=== PATIENT | male | born 1955 | race Asian ===

== ENCOUNTER 2023-09-28 05:10 | Observation (INO) | payer BC, SELFPAY ==
[2023-09-28] VITALS (7 sets, daily range): BP systolic 131–174; BP diastolic 63–78; PULSE 55–62; BMI 25.3; BMI 24.9
--- NOTE | 2023-09-28 03:52 | ED.CVA ---
History of Present Illness
General
Chief Complaint: CVA/TIA Symptoms
Source: patient, spouse and family (Daughter)
Exam Limitations: none
Time Seen by Provider: 09/28/23 03:10
Nursing documentation reviewed up to this point in time: agreed with
Onset of Stroke Symptoms
Onset of symptoms known: Yes
Date of onset of symptoms: 09/27/23
Time of onset of symptoms: 22:00
Travel History
Have you had any contact with someone who has COVID-19?: No
Do you have any symptoms of coronavirus? Fever > 100 degrees, chills, cough, shortness of breath, sore throat, loss of taste or smell, muscle aches, or headache?: No
History of Present Illness
History of Present Illness:
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
CVAs on both occasions began with dizziness. In April dizziness was also accompanied with vision difficulty, numbness of his tongue. He was found to have occipital lobe CVA. After CVA in April he was placed on 3-month course of DAPT with
low-dose aspirin and Plavix. Plavix was discontinued in July and then patient suffered another stroke early August, at that time he was on vacation in [place] and hospitalized in [place]. He was found to have cerebellar stroke along the same
distribution as his previous occipital stroke. He was placed back on DAPT for 3 weeks, discontinued 10 days ago and he followed up with his neurologist at [place] yesterday, September 27.
Tonight around 10 PM patient developed somewhat abrupt onset of dizziness causing him to lie down. Dizziness lasted only a few seconds and resolved. No associated vision difficulty nor tongue numbness, no weakness of his extremities. He has had
no return of dizziness but is concerned for recurrent stroke. He denies headache and is currently feeling well.
Past History
Past History
ED Past Medical History: CVA, HTN and Hypercholesterolemia
ED Past Surgical History: None
Social History
Tobacco: Non-smoker
Alcohol: None
Personal:
Living: with family
Employment: Retired
Family History
Family History: Other (Noncontributory)
Phy Exam
Physical Exam
Physical Exam:
GENERAL: Alert , in no apparent distress. 68-year-old gentleman appears his stated age, bright and alert, pleasant, appears in no acute distress. is accompanying.
EYE: pupils equal and reactive. anicteric
NECK: Supple, nontender, no meningismus, no significant adenopathy.
ENT: posterior pharynx is clear, oral mucosa is moist. No rhinorrhea.
CARDIAC: Regular rate and rhythm. no murmur.
LUNGS: Clear breath sounds bilaterally, no acute respiratory distress, no wheezes/rales/rhonchi
ABDOMEN: Soft, nondistended, without focal tenderness, normoactive BS.
NEUROLOGICAL: Alert and oriented x3, cranial nerves II through XII grossly intact. No focal neuro deficits. Gait is lloyd and steady.
SKIN: Warm and dry, normal color, skin intact. No rash.
MUSCULOSKELETAL: No C/C/E. peripheral pulses are full and equal b/l. No palpable tenderness.
PSYCH: Normal and appropriate interaction.
Scores
NIH Stroke Score
Level of Consciousness: 0 - Alert
LOC Questions: 0-Answers both correctly
LOC Commands: 0-Performs both correctly
Best Horizontal Gaze: 0-Normal
Visual Giordano: 0=Normal, no visual loss
Facial Palsy: 0=Normal, symmetrical
Motor - Right Arm: 0=No drift 10 seconds
Motor - Left Arm: 0=No drift 10 seconds
Motor - Right Le-No drift 5 seconds
Motor - Left Le-No drift 5 seconds
Limb Ataxia: 0-Absent
Sensation: 0-Normal
Best Language: 0-No aphasia
Dysarthria: 0-Normal
Extinction and Inattention: 0-No abnormality
Total Score:: 0
Course
Orders/Labs/Results
Orders:
Orders
09/28/23 01:[address] [CT Head W/o Iv Contrast] Urgent
Comment:
Reason For Exam: DIZZY/TIA
09/28/23 03:49
Basic Metabolic Panel Urgent
Complete Blood Count/With Diff Urgent
PTT Urgent
09/28/23 04:04
Clopidogrel Bisulfate [Plavix] 75 mg PO NOW STA
09/28/23 04:49
Admit/Transfer Patient As Directed
Co-Sign Provider:
Level of Care: Observation services
Assign to:: Telemetry
Physician / Group: Dr. Miller hospitalist
Diagnosis: Recurrent episode of dizziness, TIA R/O CVA
Reason for Telemetry: CVA/TIA
Date to Stop Telemetry: 10/01/23
Time to Stop Telemetry: 11:00
09/28/23 04:53
Code Status As Directed
Resuscitation Status: Full Code
10/01/23 11:00
DC Protocol for Telemetry ONCE
Abnormal Lab Results
09/28/23
03:49
RBC 4.34 L 10^6/uL
(4.70-6.10)
MCH 32.7 H pg
(27.0-31.0)
Monocytes % 9.6 H %
(1.7-9.3)
09/28/23 03:49
09/28/23 03:49
Vital Signs
Initial and Last Documented VS:
Initial Vital Signs
Temp Pulse Resp BP Pulse Ox
98 F 60 20 174/77 98
09/28/23 00:58 09/28/23 00:58 09/28/23 00:58 09/28/23 00:58 09/28/23 00:58
Last Documented Vital Signs
Temp Pulse Resp BP Pulse Ox
97.7 F 55 18 150/63 100
09/28/23 05:52 09/28/23 05:52 09/28/23 05:52 09/28/23 05:52 09/28/23 05:52
MDM/Problems Addressed
Differential Diagnosis Includes:
Patient presents with brief episode of moderate dizziness which has since resolved.
Prior history of CVA x 2 with similar dizziness.
It is reassuring that he has remained asymptomatic and symptoms were brief in nature but there is certainly concern for recurrent CVA versus TIA.
CT of the head shows a focal area of encephalomalacia in the left occipital pole which is new compared to previous CT April 2019.
As symptoms have promptly resolved and thus far have not returned, there is no indication for urgent/emergent MR of the brain.
I do however recommend we hospitalize for continued close observation, recommend we reinitiate Plavix and will plan for neurology evaluation and MR later today.
Chronic conditions affecting care: HTN and Neurological disorder (Two previous posterior circulation strokes)
*Radiology
Radiology exam reviewed: radiology read reviewed
*Pulse Oximetry
Patient hypoxic: no
*Critical Care Note
Total Time (30-74mins, 75-104mins- exclusive of procedures): Not Applicable
Update Note
Update Note:
Patient remains asymptomatic.
Initial hypertension has improved to 153/73.
Case discussed with neurology, Dr. Kumar. Recommend reinstituting Plavix at 75 mg, avoid Plavix load for now. Continue low-dose aspirin.
ED Attending Note
-
Portions of this chart may have been created with voice recognition software.� Occasional wrong word or��sound alike� substitutions may have occurred due to the inherent limitations of voice recognition software.
Discharge Plan
Departure
Patient Disposition: Admit
Date of Disposition: 09/28/23
Time of Disposition: 04:07
Admit to: Telemetry
Admit to doctor: Tobyy
Presentation/result/management discussed w/ accepting MD/DO: Hospitalist
Condition: Fair
Discharge Problem:
TIA r/o CVA
Interventions
Interventions:
*Risk Screen - Suicide Last Done: 09/28/23 00:58
*General Assessment Last Done: 09/28/23 03:50
*Neglect/Abuse Screening Last Done: 09/28/23 00:58
*ED COVID-19 Vaccine History Last Done: 09/28/23 02:40
*Nursing Disposition Last Done: 09/28/23 05:47
ED- Pulmonary Assessment Last Done: 09/28/23 03:50
ED- Neurological Assessment Last Done: 09/28/23 03:50
ED- Cardiac Assessment Last Done: 09/28/23 03:50
ED Swallowing Screen Last Done: 09/28/23 03:50
Discharge Date and Time
Discharge Date/Time: 09/28/23 05:47
[2023-09-28 04:11] LABS: % Basophils 0.4 % (0-2); % Eosinophils 0.8 % (0-6); % Immature Granulocytes 0.2 % (0-0.5); % Lymphocytes 41.2 % (20.5-51.1); % Monocytes 9.6 % (1.7-9.3); % Neutrophils 47.8 % (42.2-75.2); Absolute Monocytes 0.5 10^3/uL (0.1-0.6); Absolute Neutrophils 2.3 10^3/uL (1.4-6.5); Hematocrit 40.7 % (39.0-52.0); Hemoglobin 14.2 g/dL (13.0-18.0); Mean Corp Hgb Conc. 34.9 g/dL (33.0-37.0); Mean Corpuscular Hgb 32.7 pg (27.0-31.0); Mean Corpuscular Volume 93.8 fL (80.0-94.0); Mean Platelet Volume 9.9 fL (7.4-10.4); Nucleated Red Blood Cells % 0 % (-); Platelet Count 216 10^3/uL (130-400); Red Blood Cell Count 4.34 10^6/uL (4.70-6.10); Red Cell Dist. Width 12.8 % (11.5-14.5); White Blood Cell Count 4.9 10^3/uL (4.8-10.8)
[2023-09-28] MEDS: PLAVIX 75 MG PO (04:14)
[2023-09-28 04:16] LABS: APTT 32.2 Sec (23.4-35.0)
[2023-09-28 04:30] LABS: Blood Urea Nitrogen 18 mg/dl (9-20); Carbon Dioxide 28 mmol/L (22-30); Chloride 106 mmol/L (98-107); Estimated Creatinine Clearance 59 ml/min; Glucose 84 mg/dl (70-99); Potassium 4.1 mmol/L (3.5-5.1); Sodium 138 mmol/L (135-145); eGFR > 60.00
--- NOTE | 2023-09-28 04:49 | HPS.HSE ---
Family Physician
-
Family Physician: Raymundo Falk
Chief Complaint
-
dizziness
History of Present Illness
68M pw recurrent episode of dizziness which has since resolved. Previous strokes also presented w dizziness. Currently asymptomatic. HX acute ishemic CVA, intermittent dizziness, was on DAPT for 3 moths , shortly after cessation of Plavix in Last
July,he had another cerebellar stroke early August . He was placed back on DAPL for 3 weeks. Plavix again d/c 1 week ago.
Medical History
Past Medical History
Past Medical History: Reports CVA (Recurrent ischemic CVA) and Hypercholesterolemia
Past Surgical History: Reports Other
Social History
Unable to obtain full social history at this time due to: Other
Tobacco: Other
Alcohol: Other
Family History
Family History: Not pertinent
Allergies / Home Medications
Allergies reflects when Allergies were last updated in [facility].
Home Medications with original date entered in [facility]
Allergy/Medication List:
Allergies
Allergy/AdvReac Type Severity Reaction Status Date / Time
No Known Allergies Allergy Verified 09/28/23 01:03
Home Medications
aspirin 81 mg tablet,delayed release 81 mg PO DAILY 09/28/23
atorvastatin 80 mg tablet 80 mg PO DAILY 09/28/23
clopidogrel 75 mg tablet (Plavix) 75 mg PO DAILY 09/28/23
Review of Systems
-
Constitutional: Reports No Symptoms
EENT: Reports No Symptoms
Respiratory: Reports No Symptoms
Cardiac: Reports No Symptoms
Abdomen/GI: Reports No Symptoms
: Reports No Symptoms
Musculoskeletal: Reports No Symptoms
Skin: Reports No Symptoms
Neurological: Reports See HPI
Endocrine: Reports No Symptoms
Hematologic/Lymphatic: Reports No Symptoms
Psych: Reports No Symptoms
Physical Exam
Vital Signs
Vital Signs
Temp Pulse Resp BP Pulse Ox
98 F 51 10 131/69 97
09/28/23 00:58 09/28/23 04:00 09/28/23 04:00 09/28/23 04:00 09/28/23 04:00
Physical Exam
General: Other (see below )
Laboratory Results
-
09/28/23 03:49
09/28/23 03:49
Laboratory Results
APTT 32.2 Sec (23.4-35.0) 09/28/23 03:49
Data Reviewed
-
CT Scan: Discussed with Physician
Lab Data: Labs Reviewed by me
Impression/Plan
-
Reviewed VS: unremarkable
PE
Gen: NAD
HEENT: symmetric face
Neck: supple
Lungs: symmetric AE
Cor: RRR S1 S2
Abdomen: soft abdomen
BOAT WRAPPER: AAO3 , NFND
MS: no edema
Psych: nl mood and affect
Data
Nl CBC
Unremarkable BMP
HCT: focal encephalomalacia left occipital lobe.
No prior hospitalist admission:
ASSESSMENT & PLAN
Recurrent episode of dizziness - TIA r/o CVA
Recent Cerebella stoke in July 2023 s/p DAPL - currently on ASA alone
HX acute ishemic CVA,
- Ortho VSS
- resume Plavix and ASA
- cont hi dose Atorvastatin
- Brain MRI and MRA H & N
- PT/OT
- fall precaution
- Neuro consulted
DVT Px: SCD
Code: Full
Obs TLM
[2023-09-28] MEDS: LIPITOR 80 MG PO (07:29)
[2023-09-28] MEDS: ASPIR LOW (ENTERIC COATED) 81 MG PO (07:29)
[2023-09-28 07:55] LABS: Erythrocyte Sed Rate 6 mm/hour (0-20)
--- NOTE | 2023-09-28 08:13 | CON.NEURO4 ---
Addendum entered and electronically signed by Cem Kumar MD 09/28/23 13:13:
Studies reviewed.
I have personally examined the patient. I reviewed and agree with the TRANSITION ASSISTANT's Note.
My addenda:
Awake, alert, interactive. No acute distress.
Speech intact.
Follows 2-step requests w/o difficulty. No tremor.
Extra-ocular movements grossly intact.
Facial movements full and symmetric. Hearing intact to normal conversational volume.
Normal UE movements bilaterally.
Neck: full ROM.
Chest: no dyspnea
Heart: no JVD
Ext: (-) Clubbing, (-) Cyanosis, (-) Edema
IMPRESSIONS/RECOMMENDATIONS:
Abrupt recurrence of dizziness
In a patient with a history of 2 ischemic strokes since April 2023 in the posterior circulation
Differential diagnosis for his current symptomatology is recurrent acute ischemic stroke. Differential diagnosis would also include cerebral amyloid angiopathy.
Agree with providing patient with combined aspirin and clopidogrel
Check transesophageal echocardiogram due to recurrent nature of events with consideration for implantable electronic device monitor
Check MRI of brain
Check MRA head and neck
Okay to continue statin, would decrease dosing from 80 mg to dosing of 40 mg atorvastatin based on intolerance to 80 mg previously and currently well controlled total cholesterol and LDL less than 70
Check efficacy of both aspirin and clopidogrel
Rehabilitation evaluations
Consider outpatient hypercoagulable evaluation
Check blood work for additional metabolic abnormalities
Goal of normotension
Goal of normoglycemia
D/W patient / family
All questions answered.
Will continue to follow patient.
Original Note:
Documented by User: Uma Arroyo NP 09/28/23 10:24
Consultation - Neurology 4
-
CONSULTING PHYSICIAN: Cem Kumar MD
REFERRING PHYSICIAN: Hospitalists/[facility] Freeman
DICTATED BY: WILL Cha
DATE/TIME OF REQUEST: 09/28/23
DATE/TIME OF CONSULTATION: 09/28/23
Reason for Consultation: Dizziness
History of Present Illness:
This is a 68-year-old right-handed male who has presented to the hospital with report of dizziness. Patient initially presented to an outside hospital on 05/17/23 with report of spinning color wheel visual disturbance, tingling in his mouth and
lower lip, lightheadedness, and headache and was found to have acute (bilateral vs left?) occipital ischemic strokes on MRI brain imaging and calcific atherosclerosis on the left V4 segment of the vertebral artery. He completed three months of DAPT
with aspirin 81mg and Plavix 75mg. He stopped Plavix in July 2023 and continued on aspirin 81mg daily. Additionally, he had been on atorvastatin 80mg daily but reported foot cramping and his LFTs were mildly elevated in 06/2023 (AST 43, ALT 56),
so his dose was lowered to 40mg daily by his PCP at the end of July. Patient reports that since his stroke in 04/2023 his color wheel vision change resolved, but an intermittent, daily light-headed sensation lasting a few seconds has persisted.
On 08/23/23 he reports developing an acute spinning sensation different from his typical light-headed sensation. He was on vacation in [place] and presented to [facility] for evaluation. MRI brain was obtained and demonstrated an acute tiny left
cerebellar ischemic infarct, old left occipital lobe ischemic infarct, and a chronic microhemorrhage in the right centrum semiovale. Plavix was restarted at that time with instructions to complete 21 days of DAPT and then return to aspirin
monotherapy again. He reports that he completed DAPT about two weeks ago and has only been taking aspirin 81mg daily since then. He had a follow-up Neurology appointment with Dr. Johnson at [facility] yesterday (09/27/23). He was instructed to continue
aspirin 81mg and atorvastatin 80mg daily. He then reports that he received a phone call after his appointment from his Neurologist saying that they discussed the case with their stroke specialist and are considering starting adding Xarelto to his
aspirin regimen.
Last night (09/27/23) at 2200, he reports developing a sudden onset room-spinning sensation again, similar to his event in August. The spinning sensation lasted for a few seconds before subsiding, and then he reports feeling a constant light-headed
sensation, dull posterior headache, and unsteadiness on his feet. He checked his blood pressure and it was unusually elevated for him at 175/75, prompting him to come to the ER for evaluation. CT head was obtained in the ER and demonstrates a new 1
cm low-density area in the left occipital lobe of unclear etiology. NIHSS was a 0. He was not a candidate for TNK/IAT due to NIHSS<6. Plavix was restarted with his daily aspiring. Currently, patient still reports a constant mild light-headed
sensation and dull posterior headache. He denies any vision changes, speech/swallowing difficulty, nausea, numbness, weakness, chest pain, palpitations, and shortness of breath. He denies missing any doses of his medications.
Past Medical History: Bilateral vs left? occipital ischemic stroke 04/2023, left cerebellar ischemic stroke 08/2023, HLD, gout, vitamin D deficiency
Surgical History: Tonsillectomy,
Family History: Reviewed and noncontributory.
Social History: Denies tobacco and illicit drug use. Rare alcohol.
Allergies: No known allergies.
Home Medications: See below.
Review of Symptoms:
Patient denies any fever, chest pain, shortness of breath, GI or symptoms.
�Per the HPI.�All systems are reviewed negative except above.
Physical Exam:
The patient is afebrile, abdomen is nondistended, breathing is unlabored, skin is warm and dry, no edema.
NIH Stroke Scale:
I performed the NIH stroke scale on the patient on 09/28/23 at 0900. The patient scored 0 points on the NIH stroke scale assessment, which were assigned as follows: See below.
Neurologic Examination:
The patient is awake, alert and oriented x 3. He is able to follow commands and answer questions appropriately. There is no aphasia or dysarthria. On cranial nerve assessment, pupils are 3 mm bilateral, round and reactive to light and
accommodation. Visual rod are full. Extraocular movements are intact. Facial sensations are intact and bilaterally symmetrical, there is no facial asymmetry. Hearing is intact bilaterally to normal conversation volume. Tongue palate and uvula are
midline. Sternocleidomastoid strengths are full bilaterally. Motor strengths are 5/5 bilateral upper and lower extremities on medical research [place] scale. There is no drift or involuntary movement noted. Babinski is absent bilaterally. There was
no extinction noted on double simultaneous stimulation. Coordination is intact by finger to nose bilaterally.
Lab Results: See below.
Neuro Imaging:
1. CT Head 09/28/23: There is mild diffuse cortical atrophy. There is a new 1 cm low-density area in the left occipital lobe. I'm uncertain whether this is volume loss related to infarct or this is sulcal prominence related to the patient's mild
diffuse atrophy. MRI may be useful for further evaluation
Differentials for the patient's presentation include:
1. Acute cerebellar ischemic stroke possible. Etiology concerning for cardiac source given third event in less than 5 months, vs chronic V4 stenosis.
Patient has the following risk factors for their symptoms: V4 stenosis, recently stopped Plavix, HLD, hx stroke
IV Tenecteplase/IAT candidacy: Not a candidate due to NIHSS <6.
Recommendations:
-Continue DAPT with aspirin 81mg and Plavix 75mg x21 days.
-Checking aspirin and Plavix efficacy testing.
-Permissive hypertension SBP<220, DBP<120 until 2200 tonight, then goal normotension.
-MRI brain, MRA neck/head ordered/pending.
-Cariology consultation. Neurology is recommending ALEX, possible LINQ.
-LDL goal <70. LDL is 43. Would continue atorvastatin 40mg daily given LDL is at goal/recurrent LFTs.
-Consider liver ultrasound given recurrent LFT elevation.
-Goal normoglycemia, hbA1c is pending.
-NIHSS and neurological checks per unit guidelines.
-Provide patient with stroke education packet.
-PT/OT/ST evaluations
-DVT prophylaxis.
-Will follow pending results.
Discussed patient care with: Dr. Kumar, the patient
Vital Signs and Labs
-
Vital Signs and Labs:
Vital Signs
Temp Pulse Resp BP Pulse Ox
97.9 F 54 16 139/66 99
09/28/23 07:47 09/28/23 07:47 09/28/23 07:47 09/28/23 07:47 09/28/23 07:47
Lab Results
09/28/23 03:49
09/28/23 03:49
APTT 32.2 Sec (23.4-35.0) 09/28/23 03:49
Sodium 138 mmol/L (135-145) 09/28/23 03:49
Potassium 4.1 mmol/L (3.5-5.1) 09/28/23 03:49
BUN 18 mg/dl (9-20) 09/28/23 03:49
Glucose 84 mg/dl (70-99) 09/28/23 03:49
Calcium 9.0 mg/dl (8.4-10.2) 09/28/23 03:49
LDL Cholesterol, Calc 43 mg/dl 09/28/23 03:49
Vitamin B12 300 pg/ml (239-931) 09/28/23 03:49
Medications
-
Active Medications
Generic Name Dose Route Start Last Admin
Trade Name Keeley PRN Reason Stop Dose Admin
Aspirin 81 mg 09/28/23 08:00 09/28/23 07:29
Aspirin 81 Mg (Enteric Coated) Tablet PO 10/26/23 07:59 81 mg
DAILY ISIS Administration
Atorvastatin Calcium 40 mg 09/29/23 08:00
Atorvastatin (Lipitor) 40 Mg Tablet PO 10/27/23 07:59
DAILY ISIS
Clopidogrel Bisulfate 75 mg 09/29/23 08:00
Clopidogrel 75 Mg Tablet PO 10/27/23 07:59
DAILY ISIS
Sodium Chloride 0 flush 09/28/23 07:00
Sodium Chloride 0.9% (Flush) Syringe IV 10/26/23 06:59
PER PROTOCOL ISIS
Home Medications
Medication Instructions Recorded
aspirin 81 mg tablet,delayed 81 mg PO DAILY 09/28/23
release
atorvastatin 80 mg tablet 80 mg PO DAILY 09/28/23
clopidogrel 75 mg tablet (Plavix) 75 mg PO DAILY 09/28/23
NIH Stroke Score
Subsequent NIH Scale
Date of Subsequent NIH Scale: 09/28/23
Time of Subsequent NIH Scale: 09:00
NIH Stroke Score
Level of Consciousness: 0 - Alert
LOC Questions: 0-Answers both correctly
LOC Commands: 0-Performs both correctly
Best Horizontal Gaze: 0-Normal
Visual Rod: 0=Normal, no visual loss
Facial Palsy: 0=Normal, symmetrical
Motor - Right Arm: 0=No drift 10 seconds
Motor - Left Arm: 0=No drift 10 seconds
Motor - Right Le-No drift 5 seconds
Motor - Left Le-No drift 5 seconds
Limb Ataxia: 0-Absent
Sensation: 0-Normal
Best Language: 0-No aphasia
Dysarthria: 0-Normal
Extinction and Inattention: 0-No abnormality
Total Score:: 0

Documented by User: Cem Kumar MD 09/28/23 12:28
NIH Stroke Score
NIH Stroke Score
Total Score:: 0
[2023-09-28 08:15] LABS: HDL Cholesterol 62 mg/dl; LDL Cholesterol, Calculated 43 mg/dl; Total Cholesterol 119 mg/dl (50-199); Triglyceride 71 mg/dl (10-149); Very Low Density Lipoprotein 14 mg/dl (0-30)
[2023-09-28 08:44] LABS: ALT (SGPT) 75 U/L (0-50); AST (SGOT) 53 U/L (17-59); Albumin 4.1 g/dl (3.5-5.0); Alkaline Phosphatase 107 U/L (38-126); Direct Bilirubin 0.5 mg/dl (0.0-0.4); Total Bilirubin 0.5 mg/dl (0.2-1.3); Total Protein 6.4 g/dl (6.3-8.2)
[2023-09-28 09:12] LABS: Vitamin D, 25-OH*** 29.1 ng/mL (30-80)
[2023-09-28 09:25] LABS: TSH Reflex To Free T4 7.69 uIU/ml (0.47-4.68)
[2023-09-28 09:29] LABS: Ferritin 67.4 ng/ml (17.9-464.0)
--- NOTE | 2023-09-28 09:36 | CON.CAR ---
Addendum entered and electronically signed by Peter Ugalde MD 09/28/23 16:31:
Case discussed with LO Pepper. Unable to examine the patient as he was out of the room multiple times and discharged prior to my evaluation.
Briefly, 68-year-old man past medical history of CVA presenting with dizziness and vision change concerning for recurrent stroke/TIA versus recrudescence of his prior CVA
MRI here with no acute abnormality and small old L occipital lobe infarct
No evidence of arrhythmia and prior outpatient monitor reportedly unrevealing
Transthoracic echocardiogram 09/28/23 with NL biV function, no significant valvular pathology, and bubble study showing no evidence of R to L shunt
Patient declined further work up including rehab assistant and ALEX or outpatient cardiology follow up
We are happy to see as an outpatient in the future if he is interested
Addendum entered and electronically signed by Kylie Pepper PA-C 09/28/23 16:07:
Per discussion with neurology they are considering diagnosis of PRES syndrome (posterior reversible encephalopathy syndrome). They agree no ALEX is warranted
Original Note:
Consultation
Consultation Request
Date/Time Consultation Requested: 09/28/2023
Date/Time Consultation Performed: 09/28/2023
Requesting Provider: Dr. Miller
Performing Provider: Kylie Pepper PA-C for Dr. Ugalde
Reason for Consultation: Recurrent stroke
Medical History
-
History of Present Illness:
Patient is a 68-year-old male with past medical history significant for recurrent strokes (April 2023, July 2023), hyperlipidemia, vitamin D deficiency, depression who presents to with complaints of dizziness. Patient had his first stroke
in April 2023 which presented with visual disturbance and dizziness and was placed on dual antiplatelet therapy for 3 months. Shortly after stopping Plavix in July 2023 had a second stroke (cerebellar) in August 2022 while in [place]. He was
placed back on dual antiplatelet therapy for 3 weeks. Plavix was discontinued several days ago and now he has recurrent dizziness. Head CT in emergency department shows diffuse cortical atrophy with small new 1 cm low-density area in left
occipital lobe which could represent new stroke versus volume loss related to prior infarct. MRI performed 09/28/2023 which shows small old occipital infarct but no new stroke.
Patient reports he wore a 4-week outpatient monitor in May 2023 which failed to demonstrate evidence of arrhythmia. He notes occasional palpitations that last a second then resolve spontaneously. He denies any prolonged episodes of
palpitations.
Cardiology being asked to see patient for evaluation for transesophageal echocardiogram.
Past medical history:
Left occipital stroke w/ high grade stenosis of left V4 segment (per records from [facility]) 05/18/2023
Stroke in July 2023 in [place] (no formal documentation to confirm this)
Intermittent dizziness
Hyperlipidemia
Vitamin D deficiency
Depression
Gout
Past Medical History
Past Medical History: Other (see HPI)
Past Surgical History: Tonsilectomy
Social History
Tobacco: Non-Smoker
Alcohol: None
Drug: None
Personal:
Living: With Family
Allergies / Home Medications
Allergy/AdvReac Type Severity Reaction Status Date / Time
No Known Allergies Allergy Verified 09/28/23 01:03
Medication Instructions Recorded Confirmed Type
aspirin 81 mg tablet,delayed 81 mg PO DAILY 09/28/23 09/28/23 History
release
atorvastatin 80 mg tablet 80 mg PO DAILY 09/28/23 09/28/23 History
clopidogrel 75 mg tablet (Plavix) 75 mg PO DAILY 09/28/23 09/28/23 History
Physical Exam
Vital Signs
Temp Pulse Resp BP Pulse Ox
97.9 F 54 16 139/66 99
09/28/23 07:47 09/28/23 07:47 09/28/23 07:47 09/28/23 07:47 09/28/23 07:47
GEN: No distress, awake, Ox3
HEENT: supple, anicteric, mmm
LUNGS: CTA, no wheezes/rales
CV: Reg, S1/S2,, no murmur, rub or gallop
ABD: soft, BS+, NT/ND
EXT: No edema, clubbing or cyanosis
NEURO: Gross non-focal
SKIN: No rash, warm, dry
Lab Results
09/28/23 03:49
09/28/23 03:49
Impression / Plan
-
Family Physician:� Raymundo Falk
Iron Guardrail Installer: None prior to arrival, Dr. Ugalde
Impression:
Presents 09/27/2023 with dizziness
Left occipital stroke w/ high grade stenosis of left V4 segment (per records from [facility]) 05/18/2023
Stroke in July 2023 in [place] (no formal documentation to confirm this)
Intermittent dizziness
Hyperlipidemia
Vitamin D deficiency
Depression
Gout
Echo 09/28/2023: EF 68%. No significant valvular heart disease. No evidence of PFO with negative bubble study with agitated saline
Plan:
Patient is a 68-year-old male with past medical history significant for recurrent strokes (April 2023, July 2023), hyperlipidemia, vitamin D deficiency, depression who presents to with complaints of dizziness. Patient had his first stroke
in April 2023 which presented with visual disturbance and dizziness and was placed on dual antiplatelet therapy for 3 months. Shortly after stopping Plavix in July 2023 had a second stroke (cerebellar) in August 2022 while in [place]. He was
placed back on dual antiplatelet therapy for 3 weeks. Plavix was discontinued several days ago and now he has recurrent dizziness. Head CT in emergency department shows diffuse cortical atrophy with small new 1 cm low-density area in left
occipital lobe which could represent new stroke versus volume loss related to prior infarct. MRI performed 09/28/2023 which shows small old occipital infarct but no new stroke.
Patient reports he wore a 4-week outpatient monitor in May 2023 which failed to demonstrate evidence of arrhythmia. He notes occasional palpitations that last a second then resolve spontaneously. He denies any prolonged episodes of
palpitations. Echocardiogram here shows preserved ejection fraction with no significant valvular heart disease and negative bubble study.
Cardiology being asked to see patient for evaluation for transesophageal echocardiogram.
-Presented 09/27/2023 with dizziness. History of prior stroke x 2 with symptoms of dizziness. Head CT with diffuse cortical atrophy and new 1 cm low-density area in left occipital lobe. MRI does not show new stroke.
-Neurology following.
-Agree with resuming aspirin and Plavix. Neurology ordered aspirin and Plavix efficacy testing
-Continue high-dose atorvastatin. Lipids TC 119, HDL 62, LDL 43, triglyceride 71. Lipids are at goal.
-Per extensive review of outpatient records patient had transthoracic echo in April 2023 at [place]. Repeat echocardiogram here shows preserved ejection fraction with no significant valvular heart disease and negative bubble study. Discussed
proceeding with ALEX however patient is not interested at this admission. I did offer we could schedule as an outpatient and he reports he would like to think about it.
-EKG sinus bradycardia 55 bpm and no arrhythmias on tele. Patient did wear a 4-week outpatient ambulatory monitor in May 2023 which failed to demonstrate evidence of arrhythmia per his account. Discussed undergoing implantable Linq monitor for
long-term evaluation for cardiac arrhythmia. He declined at this time. He would like to utilize Apple Watch instead. I did discuss if he changes his mind we would be happy to move forward with Linq monitor as outpatient.
-Offered to schedule patient an appointment with cardiology. He declines. I did leave him our business card.
Data Reviewed
-
EKG: Report Reviewed by me
CT Scan: Report Reviewed by me and Discussed with Physician
MRI: Report Reviewed by me
Medical Tests (Nuc Med, Echo etc): Report Reviewed by me, Discussed with Physician and Discussed with Patient
Labs: Labs Reviewed by me, Discussed with Physician and Discussed with Patient
Old Records: Reviewed
[2023-09-28 09:53] LABS: Free T4 1.05 ng/dl (0.78-2.19)
[2023-09-28 10:00] LABS: Folate 17.5 ng/ml (2.76-20); Vitamin B12 300 pg/ml (239-931)
[2023-09-28 10:18] LABS: VerifyNow Aspirin 394 ARU; VerifyNow PRU 242 PRU (180-376)
--- NOTE | 2023-09-28 11:25 | W.PN.HOSP.TC ---
Addendum entered and electronically signed by Brittany Irving MD 09/28/23 14:44:
total DC time 35 min
Original Note:
Today's Communication/Plan
-
see AP
Assessment / Plan
Assessment / Plan
HPI: 68 yo M�PMH recurrent stroke; p/w dizziness which has since resolved. His previous strokes presented with dizziness.
He was on DAPT for 3 moths and shortly after cessation of Plavix in July 2023, he had another cerebellar stroke early August. He was placed back on DAPL for 3 weeks. 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
A/P:
# Recurrent�dizziness, admit for acute stroke eval
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
MRI Brain without acute stroke
MRA brain and neck without focal hemodynamically significant stenosis, aneurysm or occlusion.
Continue DAPT with aspirin 81mg and Plavix 75mg x21 days. Check aspirin and Plavix efficacy testing.
Allow Permissive hypertension for now, then goal normotension.
Cariology eval for TTE with bubble, possible ALEX, possible LINQ.
LDL goal <70. LDL is 43. Continue atorvastatin 40mg daily given LDL is at goal
Follow A1c
Neuro on board
PT/OT/ST evaluations
DVT prophylaxis.
DVT Px: SCD
Code: Full
Obs TLM
DW RN
Anticipated Discharge: Within 24 hours
Subjective/Interval History
-
Date of Service: September 28, 2023
Objective Data
-
Labs:
Laboratory Results
09/28/23
03:49
WBC 4.9
Hgb 14.2
Hct 40.7
Plt Count 216
APTT 32.2
Sodium 138
Potassium 4.1
Chloride 106
Carbon Dioxide 28
BUN 18
Creatinine 1.1
Glucose 84
Calcium 9.0
Total Bilirubin 0.5
AST 53
ALT 75 H
Alkaline Phosphatase 107
Vital Signs:
Vital Signs
Temp Pulse Resp BP Pulse Ox
36.6 C 54 16 139/66 99
09/28/23 07:47 09/28/23 07:47 09/28/23 07:47 09/28/23 07:47 09/28/23 07:47
Review of Systems
-
Neuro: Denies Dizzy (resolved)
Physical Exam
-
General: Well Developed, Well Nourished, No Apparent Distress, Comfortable and Conversant; Negative Respiratory Distress
HEENT: Normocephalic, Atraumatic, Nose Appears Normal and Ears Appear Normal; Negative Oxygen
Respiratory: Clear to Auscultation and Non Labored Respirations; Negative Accessory Resp Muscle Use
Cardiac: Regular Rhythm and S1/S2
GI: Soft, Nontender, Nondistended and Normal Bowel Sounds
Skin: Warm and Dry
Neuro: Awake, Alert, Oriented, AO x 3 and Nonfocal/Grossly Intact
Psych: Calm and Intact Judgement/Insight
Data Reviewed
-
MRI: Report Reviewed by me
Labs: Labs Reviewed by me
[2023-09-28 12:11] LABS: Glycohemoglobin (HgbA1c) 5.8 % (4.0-5.6)
--- NOTE | 2023-09-28 13:40 | PTOTSP ---
SPEECH THERAPY SWALLOW EVALUATION:
Patient presents with oropharyngeal swallow function grossly WFL at this time. Given MRI is negative for acute CVA and patient appears to be at baseline level of functioning, patient appears to be at low risk for aspiration and related complications
at this time. Recommend Regular texture diet and thin liquids. Medications whole with liquid one at a time. Discussed with patient that should complaints of hiccups/esophageal globus sensation persist or become problematic, consider discussion with
PCM regarding GI consult. Swallow therapy is not indicated at this time. Patient's speech, language, and cognitive communication skills were informally assessed during swallow evaluation. Patient did not exhibit any signs concerning for
speech/language/cognitive communication impairments at this time. Should future speech/language/cognitive communication impairments arise, please contact ST for formal assessment. ST to sign off at this time.
RECOMMEND:
1) Regular texture diet and thin liquids
2) Medications whole with liquid one at a time
3) Swallow/speech therapy is not indicated at this time
[2023-09-28] MEDS: VITAMIN B-12 1000 MCG PO (14:34)
[2023-09-28] MEDS: MAXALT MLT (ORALLY DISINTEGRATING) 10 MG PO (14:34)
[2023-09-28] MEDS: VITAMIN D3 (cholecalciferol) 50 MCG PO (14:34)
--- NOTE | 2023-09-28 14:34 | W.DCSUMMARY ---
Discharge Summary
Discharge Data
Date of Admission: 09/28/23
Date of Discharge: 09/28/23
-
Pending Results: No
Hospital Course
Principal Diagnosis:
Dizziness/vertigo, resolved
Possible subclinical hypothyroidism.
Chronic Diagnoses:�
Recent occipital stroke in Apr 2023 and cerebella stoke in August 2023
Consultations:�
Neurology
Cardiology
Procedures:�
None
Clinical course:�
This is a 68-year-old male with past medical history as stated as above, who presented dizziness/vertigo which has resolved.
Of note, he has had 2 recent stroke, the first in April 2023 (occipital stroke) and the second in August 2023 (tiny cerebella stoke).
Problem 1:
Dizziness/vertigo, admitted for acute stroke evaluation.
His MRI brain is without acute stroke this admission.
His MRA brain and neck was also negative for focal hemodynamic stenosis, aneurysm or occlusion.
He was recommended by neurology to continue DAPT with aspirin 81mg and Plavix 75mg x21 days, then ASA after that.
Cardiology was consulted for TTE +- bubble study and ALEX work up, and possible LINQ, given his history of recurrent strokes.
The patient prefers to have the ALEX and Linq evaluated outpatient.
His LDL was checked this time and it is at 43. He can continue with his prior to admission Lipitor at 80 mg.
Problem 2:
Possible subclinical hypothyroidism.
For unknown reason, his TSH reflex free T4 was checked, and his TSH was noted to be elevated at 7.69 and FT4 at 1.05.
The patient has been informed to repeat TSH reflex free T4 with his PCP outpatient.
As for the rest of his medical problems, they were stable during his hospital stay.
Discharge Plan
-
Patient Disposition: Home with Home Care
Discharge Diagnosis/Procedures: Vertigo (resolved); Recent occipital stroke in Apr 2023 and Cerebella stoke in July 2023
Condition: Good
Diet: As tolerated, Low Fat, Low Cholesterol and Low Sodium
Activity: As tolerated
Driving Restrictions: Not until seen by your Dr
Blood Work: Check repeat TSH reflex free T4 with your PCP in 2 to 4 weeks
Activity Restrictions/Additional Instructions:
Take aspirin and Plavix together for 21 days, then aspirin after that.
Referrals:
Raymundo Falk MD [Family Provider] - in less than 1 week
Prescriptions:
Continued
atorvastatin 80 mg Tablet
80 mg PO DAILY
clopidogrel [Plavix] 75 mg Tablet
75 mg PO DAILY Qty: 21 0RF
aspirin 81 mg Tablet,Delayed Release (Dr/Ec)
81 mg PO DAILY Qty: 30 0RF
Discharge Orders:
Discharge Patient (As Directed); Ordered 09/28/23
Ordered By: Brittany Irving
--- NOTE | 2023-09-28 15:20 | PTOTSP ---
PATIENT FUNCTIONING INDEPENDENTLY ON LEVEL SURFACES WELL ELEVATIONS REQUIRING NO FURTHER ACUTE CARE SKILLED P.T. AT THIS TIME. WILL DISCHARGE FROM P.T. SERVICES.
== END 2023-09-28 15:43 | disposition home health service (06) ==
LOC: 3 WEST ACU 05:10
PROVIDERS: ADMITTING PHYSICIAN Internal Medicine; ATTENDING PHYSICIAN Internal Medicine; CONSULT PHYSICIAN Internal Medicine Cardiovascular Disease; CONSULT PHYSICIAN Psychiatry & Neurology Neurology; EMERGENCY PHYSICIAN Emergency Medicine; FAMILY PHYSICIAN Internal Medicine Geriatric Medicine
DX: R42 Dizziness and giddiness (principal); H53.9 Unspecified visual disturbance; I10 Essential (primary) hypertension; R94.6 Abnormal results of thyroid function studies; E78.00 Pure hypercholesterolemia, unspecified; E55.9 Vitamin D deficiency, unspecified; F32.A Depression, unspecified; M10.9 Gout, unspecified; R00.2 Palpitations; Z79.02 Long term (current) use of antithrombotics/antiplatelets; Z79.82 Long term (current) use of aspirin; Z86.73 Personal history of transient ischemic attack (TIA), and cerebral infarction without residual deficits
CPT/HCPCS: 70450; 70544; 70548; 70551; 80053; 80061; 82077; 82248; 82306; 82607; 82728; 82746; 83036; 84439; 84443; 85025; 85576; 85652; 85730; 92610; 93005; 93306; 97161; 97165; 99285; A9585; G0378

== ENCOUNTER → 2023-11-11 11:12 | Outpatient (REF) | payer BC, SELFPAY | LOC: RAD 11:12 | PROVIDERS: ATTENDING PHYSICIAN Internal Medicine Geriatric Medicine | DX: E04.1 Nontoxic single thyroid nodule (principal); E78.2 Mixed hyperlipidemia; M10.9 Gout, unspecified; E55.9 Vitamin D deficiency, unspecified; Z71.89 Other specified counseling; Z13.31 Encounter for screening for depression; I63.9 Cerebral infarction, unspecified; R74.01 Elevation of levels of liver transaminase levels; H93.A2 Pulsatile tinnitus, left ear | CPT/HCPCS: 76536 ==